=== PATIENT | male | born 1995 | race Caucasian/White ===

== ENCOUNTER 2019-08-02 17:26 | Emergency (ER) | payer OTHER, SELFPAY ==
[2019-08-02 17:25] VITALS: BP 140/76; PULSE 94; RESP 16; TEMP 37.2; O2SAT 98
--- NOTE | 2019-08-02 17:31 | ED.ALLEREA ---
HPI - Allergic Reaction General Chief complaint: Allergic Reaction Stated complaint: ALLERGIC REACTION Time Seen by Provider: 08/02/19 17:31 Source: patient and RN notes reviewed Mode of arrival: EMS Limitations: no limitations History of Present Illness HPI narrative: A 23 y/o male presents to the ED via EMS after having a possible allergic reaction beginning roughly 2 hours ago. He states that he got his normal allergy shots at [facility] at 2:30 PM and roughly 1 hour later he began to develop SOB, central test tightness, itchy throat, and hives around his injection sites. He reports that he called [facility], who told him to use his Epipen, which he used roughly 30 minutes ago and called EMS. He notes that he is still feeling like he can't take a deep breath but that his other symptoms have since resolved. He also notes that he has been getting these shots every month for the past year and that normally he develops some mild hives, but that they typically resolve after a few minutes. He denies any fevers, chills, N/V/D, or ABD pain. MD complaint: allergic reaction Onset (ago): hour(s) (2) Exposure: other (allergy shots) Symptoms: rash (hives around injection sites (resolved)), itching (throat (resolved)), difficulty breathing and other (central chest tightness (resolved)) Treatment prior to arrival: epinephrine Related Data Home Medications Medication Instructions Recorded Confirmed cetirizine 10 mg PO DAILY 08/02/19 sertraline 100 mg PO DAILY 08/02/19 Allergies Allergy/AdvReac Type Severity Reaction Status Date / Time peanut Allergy Severe Anaphylaxis Verified 08/02/19 17:40 Cephalosporins Allergy Mild Unknown Unverified 08/02/19 17:40 nuts Allergy Severe Anaphylaxis Uncoded 08/02/19 17:40 v8 smoothies Allergy Mild Swelling Uncoded 08/02/19 17:40 of Lip/Tongue/Throat Review of Systems Review of Systems: Narrative: CONSTITUTIONAL: Denies fevers or chills. CARDIOVASCULAR: Denies current chest pain, denies palpitations RESPIRATORY:Denies shortness of breath currently GASTROINTESTINAL: Denies abdominal pain, nausea, vomiting, or diarrhea. SKIN: Reports hives around his injection sites and an itchy throat which have both resolved. All systems reviewed & are unremarkable except as noted in HPI and below PMFSH Past Medical History Medical History (Updated 08/02/19 @ 20:17 by Wilma Candelario MD) Allergies Asthma Eczema GERD (gastroesophageal reflux disease) Surgical History Surgical History (Updated 08/02/19 @ 17:41 by Chaka Bailey) H/O adenoidectomy History of placement of ear tubes Exam Narrative: Exam Narrative: GENERAL: Well-appearing, well-nourished, and in no acute distress. HEAD: Normocephalic, atraumatic. EYES: PERRLA and EOMI. ENT: Nares clear, no rhinorrhea or epistaxis. Mucous membranes moist. NECK: Supple. CHEST: Clear to auscultation. No respiratory distress. No chest wall tenderness. HEART: Regular rate and rhythm. No murmur heard. Normal peripheral pulses. ABDOMEN: Soft, nontender, nondistended, normal active bowel sounds. EXTREMITIES: Normal range of motion. No edema. SKIN: Warm, dry, no rash, intermuscular injection site to lt shoulder, no erythema, no urticaria. NEURO: No focal deficits. Alert and oriented X3. Course Course Emergency Course: Patient presents to the emergency department for evaluation of a possible allergic reaction. The time of initial assessment, ABCs are intact and vital signs are stable. Airway is patent. Patient has no current symptoms. He has no chest pain, no shortness of breath, no rash, no wheezing, no nausea or vomiting. His exam is reassuring. EKG obtained which shows no acute ischemic changes. Given no chest pain, and this is likely allergic reaction, I believe that patient may be following up with his primary care provider. His period of observation was normal he had no recurrent symptoms or rebound symptoms. Patient will be discharged home with
[2019-08-02] MEDS: FAMOTIDINE 20 MG/2 ML VIAL IV PUSH (17:54)
[2019-08-02 18:33] VITALS: BP 136/63; PULSE 71; RESP 16; O2SAT 99
[2019-08-02 19:15] VITALS: BP 123/69; PULSE 69; RESP 18; O2SAT 99
[2019-08-02 20:15] VITALS: BP 124/65; PULSE 65; RESP 16; O2SAT 98
--- NOTE | 2019-08-02 20:19 | ECG_ITS ---
Measurements Intervals [place] Rate: 69 P: 15 ND: 120 QRS: 44 QRSD: 102 T: 10 QT: 355 QTc: 381 Interpretive Statements SINUS RHYTHM BASELINE ARTIFACT- I, II, III, AVR, AVL, V2 NORMAL ECG Electronically Signed On 08-03-2019 7:04:48 CDT by Tommy Rosen D.O.
== END 2019-08-02 20:30 | disposition home or self-care (01) ==
PROVIDERS: Emergency Provider Emergency Medicine
DX: T78.40XA Allergy, unspecified, initial encounter (principal); K21.9 Gastro-esophageal reflux disease without esophagitis; J45.909 Unspecified asthma, uncomplicated
CPT/HCPCS: 93005; 96374; 96375; 99284; A9270; J1100

== ENCOUNTER 2019-11-05 15:06 | Emergency (ER) | payer OTHER, SELFPAY ==
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
[2019-11-05 15:13] VITALS: BP 123/76; PULSE 70; RESP 18; TEMP 36.3; O2SAT 99
[2019-11-05] MEDS: IBUPROFEN 600 MG TABLET PO (15:56)
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
== END 2019-11-05 16:35 | disposition home or self-care (01) ==
PROVIDERS: Emergency Provider General Practice; PCP Registered Nurse
DX: M25.531 Pain in right wrist (principal); V49.50XA Passenger injured in collision with unspecified motor vehicles in traffic accident, initial encounter
CPT/HCPCS: 73110; 99283; A9270

== ENCOUNTER 2020-03-14 06:48 | Outpatient (NON) | payer OTHER, SELFPAY ==
[2020-03-14 23:56] LABS: SARS-CoV-2 RNA PCR Negative
== END 2020-03-14 06:49 ==
LOC: ANHCOVIDDT 07:01
PROVIDERS: PCP Registered Nurse; Visit Provider Registered Nurse
DX: Z20.828 Contact with and (suspected) exposure to other viral communicable diseases (principal); R05 Cough; J02.9 Acute pharyngitis, unspecified
CPT/HCPCS: 87635; C9803; U0003